=== PATIENT | female | born 1980 | race African-American/Black ===

== ENCOUNTER 2017-03-02 06:47 | Emergency (ER) | payer SELFPAY ==
[~2017-03-02] VITALS: Ht 157.5 cm; Wt 63.5 kg
[2017-03-02] MEDS ORDERED: IBUPROFEN 800 MG TABLET. PO ONE (07:15)
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
[2017-03-02 07:23] VITALS: BP 134/89
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
== END 2017-03-02 08:22 | disposition home or self-care (01) ==
LOC: ER 06:47
DX: M25.512 Pain in left shoulder (principal)
CPT/HCPCS: 73030; 99284